=== PATIENT | male | born 1970 | race African-American/Black ===

== ENCOUNTER 2021-08-29 17:52 | Observation (INO) | payer OTHER, SELFPAY ==
[2021-08-29] MEDS ORDERED: Senokot S 8.6-50 MG TAB PO PRN (19:31)
[2021-08-29] MEDS ORDERED: Guaifenesin DM 100-10/5 ML UDCUP PO PRN (19:31)
[2021-08-29] MEDS ORDERED: Ondansetron PF 4 MG/2 ML Vial IVP PRN (19:31)
[2021-08-29] MEDS ORDERED: HYDROcodone/Acetaminophen 5/325 mg Tablet PO PRN ×2 (19:31)
[2021-08-29] MEDS ORDERED: Zolpidem Tartrate 5 MG TAB PO PRN (19:31)
[2021-08-29] MEDS ORDERED: Calcium Carbonate 500 MG ChewTAB PO PRN (19:31)
[2021-08-29] MEDS ORDERED: Acetaminophen 325 MG TAB PO PRN (19:31)
[2021-08-29] MEDS ORDERED: Nitroglycerin 0.4 MG TAB (25 Tab Bottle) SL PRN (19:31)
[2021-08-29] MEDS ORDERED: Potassium Chloride 20 MEQ TAB PO SCH (21:00)
[2021-08-29] MEDS ORDERED: Lorazepam 2 MG/ML VIAL SLOW IVP SCH (22:00)
[2021-08-29 22:15] LABS: Troponin I 0.022 ng/mL (< 0.028)
[2021-08-29] MEDS: chlordiazePOXIDE HCl 5 MG CAP PO SCH (22:52)
[2021-08-29] MEDS ORDERED: FLU VACC QS2021-22(6MOS UP)/PF 60 MCG/0.5 ML SYRINGE IM ONE (23:00)
[2021-08-29 23:51] VITALS: BMI 35.7
[2021-08-29] MEDS ORDERED: Thiamine HCl 200 MG/2 ML VIAL SLOW IVP SCH (23:59)
[2021-08-29] MEDS ORDERED: Multivitamins, Adult 10 ML, Folic Acid 1 MG in Dextrose 5 %-0.45 % NaCl 1,000 ML IV SCH (23:59)
[2021-08-30 04:30] LABS: Troponin I 0.017 ng/mL (< 0.028)
[2021-08-30 04:31] LABS: Anion Gap 13 mmol/L (10-20); BUN (Urea Nitrogen) 5 mg/dL (8.4-25.7); Calc. Creatinine Clearance 188 mL/min (70-130); Calcium 8.1 mg/dL (7.8-10.44); Carbon Dioxide 27 mmol/L (22-29); Cardiac Risk 2.8 (Less than 4.5); Chloride 104 mmol/L (98-107); Cholesterol 184 mg/dl (< 200 Desired); Glucose 147 mg/dL (70-105); HDL Cholesterol 66 mg/dL (>60 Neg Risk); LDL Cholesterol, Calculated 104 mg/dL; Magnesium 1.6 mg/dL (1.6-2.6); Potassium 3.4 mmol/L (3.5-5.1); Sodium 141 mmol/L (136-145); Triglycerides 70 mg/dL (Less than 150)
[2021-08-30] MEDS ORDERED: Potassium Chloride 20 MEQ TAB PO SCH (05:15)
[2021-08-30] MEDS: chlordiazePOXIDE HCl 5 MG CAP PO SCH ×3 (06:11→21:34)
[2021-08-30] MEDS ORDERED: Cepastat Lozenges 1 LOZ PO PRN (06:51)
[2021-08-30] MEDS ORDERED: Ondansetron ODT 4 MG TAB PO PRN (06:51)
[2021-08-30] MEDS ORDERED: GUAIFENESIN SF SOLN 200 MG/10 ML UDCUP PO PRN (06:51)
[2021-08-30] MEDS ORDERED: Loperamide HCl 2 MG CAP PO PRN (06:51)
[2021-08-30] MEDS ORDERED: Loratadine 10 MG TAB PO PRN (06:51)
[2021-08-30] MEDS ORDERED: Hydrocerin (Eucerin) Cream 120 gm Jar TOP PRN (06:51)
[2021-08-30] MEDS ORDERED: Bisacodyl 5 MG TAB PO PRN (06:51)
[2021-08-30] MEDS ORDERED: Benzonatate 100 MG CAP PO PRN (06:51)
[2021-08-30] MEDS ORDERED: hydrALAZINE 20 MG/ML VIAL SLOW IVP PRN (06:51)
[2021-08-30] MEDS: Aspirin Chewable 81 MG TAB PO SCH (08:35)
[2021-08-30] MEDS: Thiamine 100 MG TAB PO SCH (08:36)
[2021-08-30] MEDS: Hydrochlorothiazide 25 MG TAB PO SCH (08:36)
[2021-08-30] MEDS: Allopurinol 100 MG TAB PO SCH (08:36)
[2021-08-30] MEDS: Valsartan 80 MG TAB PO SCH (08:36)
[2021-08-30] MEDS: Enoxaparin Sodium 40 MG/0.4 ML SYRINGE SC SCH (08:37)
[2021-08-30] MEDS: Multivit, Therapeutic 1 TAB PO SCH (08:37)
[2021-08-30] MEDS: metFORMIN 500 MG TAB PO SCH ×2 (08:37→14:47)
[2021-08-30] MEDS: Atorvastatin Calcium 10 MG TAB PO SCH (08:37)
[2021-08-30] MEDS: Folic Acid 1 MG TAB PO SCH (08:37)
[2021-08-30] MEDS: Carvedilol 25 MG TAB PO SCH ×2 (08:37→18:18)
[2021-08-30] MEDS ORDERED: Amlodipine 5 MG TAB PO SCH (09:45)
[2021-08-30 11:32] LABS: Hemoglobin A1c 6.2 % (4.0-6.0)
[2021-08-31 06:01] LABS: Anion Gap 13 mmol/L (10-20); BUN (Urea Nitrogen) 6 mg/dL (8.4-25.7); Calc. Creatinine Clearance 186 mL/min (70-130); Calcium 8.7 mg/dL (7.8-10.44); Carbon Dioxide 28 mmol/L (22-29); Chloride 100 mmol/L (98-107); Glucose 136 mg/dL (70-105); Magnesium 1.9 mg/dL (1.6-2.6); Phosphorus 5.5 mg/dL (2.3-4.7); Potassium 3.4 mmol/L (3.5-5.1); Sodium 138 mmol/L (136-145)
[2021-08-31] MEDS: chlordiazePOXIDE HCl 5 MG CAP PO SCH (06:13)
[2021-08-31 06:15] LABS: #Eosinphils 0.1 10x3/uL (0.0-0.5); #Monocytes 0.5 10x3/uL (0.0-1.1); #Neutrophils 3.4 10x3/uL (1.5-8.4); %Basophils 0.3 % (0.0-2.0); %Eosinophils 2.2 % (0.0-6.0); %Lymphocytes 30.5 % (18.0-47.0); %Monocytes 8.4 % (0.0-10.0); %Neutrophils 58.3 % (40.0-75.0); Hemoglobin 13.1 g/dL (13.5-17.5); Mean Corpuscular HGB CONC 33.4 g/dL (32.0-36.0); Mean Corpuscular Hemoglobin 33.1 pg (27.0-33.0); Mean Platelet Volume 11.9 fl (7.4-10.4); Platelet Count 153 10x3/uL (150-450); RBC Distribution Width 11.9 % (11.5-14.5); Red Blood Cell (RBC) Count 3.96 10x6/uL (4.32-5.72); White Blood Cell (WBC) Count 5.8 10x3/uL (3.5-10.5)
[2021-08-31] MEDS ORDERED: Potassium Chloride 20 MEQ TAB PO SCH (07:30)
[2021-08-31] MEDS ORDERED: Amlodipine 5 MG TAB PO SCH (09:00)
[2021-08-31] MEDS: Hydrochlorothiazide 25 MG TAB PO SCH (09:01)
[2021-08-31] MEDS: Multivit, Therapeutic 1 TAB PO SCH (09:01)
[2021-08-31] MEDS: Allopurinol 100 MG TAB PO SCH (09:01)
[2021-08-31] MEDS: Folic Acid 1 MG TAB PO SCH (09:01)
[2021-08-31] MEDS: Atorvastatin Calcium 10 MG TAB PO SCH (09:01)
[2021-08-31] MEDS: Thiamine 100 MG TAB PO SCH (09:01)
[2021-08-31] MEDS: Aspirin Chewable 81 MG TAB PO SCH (09:01)
[2021-08-31] MEDS: Enoxaparin Sodium 40 MG/0.4 ML SYRINGE SC SCH (09:02)
[2021-08-31] MEDS: Carvedilol 25 MG TAB PO SCH (09:02)
[2021-08-31] MEDS: metFORMIN 500 MG TAB PO SCH (09:02)
[2021-08-31] MEDS: Valsartan 80 MG TAB PO SCH (09:05)
[2021-08-31 09:17] VITALS: BP 158/103; TEMP 97.4
== END 2021-08-31 11:45 | disposition home or self-care (01) ==
LOC: CSHTELE 18:30
PROVIDERS: ADMIT Family Medicine; ATTEND Internal Medicine
DX: R07.2 Precordial pain (principal); F10.139 Alcohol abuse with withdrawal, unspecified; E11.9 Type 2 diabetes mellitus without complications; M10.9 Gout, unspecified; E78.5 Hyperlipidemia, unspecified; I11.0 Hypertensive heart disease with heart failure; I50.22 Chronic systolic (congestive) heart failure; I47.2 Ventricular tachycardia; Z87.891 Personal history of nicotine dependence; Z91.14 Patient's other noncompliance with medication regimen; E87.6 Hypokalemia; Z82.49 Family history of ischemic heart disease and other diseases of the circulatory system; Z95.818 Presence of other cardiac implants and grafts; Z79.899 Other long term (current) drug therapy; Z79.82 Long term (current) use of aspirin; Z88.8 Allergy status to other drugs, medicaments and biological substances
CPT/HCPCS: 36415; 80048; 80061; 83036; 83735; 84100; 84443; 84484; 85025; 85379; 93005; 93010; 93306; 96372; 96374; 96375; G0378; J1650; J2060; J3411; J7042

== ENCOUNTER 2025-06-29 17:23 | Inpatient (IN) | payer OTHER ==
[2025-06-29 18:11] LABS: #Basophils Less than 0.03 10x3/uL (0.0-0.2); #Eosinophils 0.07 10x3/uL (0.0-0.5); #Monocytes 0.66 10x3/uL (0.0-1.1); #Neutrophils 5.54 10x3/uL (1.5-8.4); %Basophils 0.3 % (0.0-2.0); %Eosinophils 0.9 % (0.0-6.0); %Lymphocytes 17.0 % (18.0-47.0); %Monocytes 8.7 % (0.0-10.0); %Neutrophils 72.8 % (40.0-75.0); Hematocrit 39.3 % (38.8-50.0); Hemoglobin 13.4 g/dL (13.5-17.5); Mean Corpuscular Hemoglobin 34.3 pg (27.0-33.0); Mean Corpuscular Volume 100.5 fL (81.2-95.1); Red Blood Cell (RBC) Count 3.91 10x6/uL (4.32-5.72); White Blood Cell (WBC) Count 7.60 10x3/uL (3.5-10.5)
[2025-06-29 18:19] LABS: ALT (SGPT) 64 U/L (Less than 45); AST (SGOT) 112 U/L (11-34); Albumin 3.5 g/dL (3.1-4.5); Alkaline Phosphatase 96 U/L (40-110); Anion Gap 15 mmol/L (10-20); BUN (Urea Nitrogen) 7 mg/dL (8.4-25.7); Bilirubin, Total 2.2 mg/dL (0.3-1.2); Calc. Creatinine Clearance 0 mL/min (70-130); Calcium 9.1 mg/dL (7.8-10.44); Carbon Dioxide 27 mmol/L (22-29); Chloride 97 mmol/L (98-107); Globulin 3.6 g/dL (2.4-3.5); Glucose 199 mg/dL (70-105); Potassium 2.9 mmol/L (3.5-5.1); Sodium 136 mmol/L (136-145)
[2025-06-29 18:20] LABS: Troponin I 0.027 ng/mL (< 0.028)
[2025-06-29 18:35] LABS: Magnesium 1.3 mg/dL (1.6-2.6)
[2025-06-29 18:58] LABS: Platelet Adequacy Comment Appears Decreased
[2025-06-29 18:59] LABS: Platelet Count 114 10x3/uL (130-400)
[2025-06-29] MEDS ORDERED: Magnesium 2 GM/50 ML BAG (IN WATER) ONE (19:07)
[2025-06-29] MEDS ORDERED: Potassium Chloride 20 MEQ (100 mL) BAG ONE (19:08)
[2025-06-29] MEDS ORDERED: Ondansetron PF 4 MG/2 ML Vial IVP PRN (20:05)
[2025-06-29] MEDS ORDERED: Electrolyte Replacement Protocol 1 EACH FS PRN (20:15)
[2025-06-29] MEDS ORDERED: Acetaminophen 500 MG TAB PO PRN (20:38)
[2025-06-29 21:57] VITALS: BMI 31.5
[2025-06-30] MEDS: Magnesium 2 GM/50 ML(in water) 2 GM in Premix 1 BAG IVPB SCH ×2 (01:19→09:09)
[2025-06-30 04:48] LABS: #Basophils Less than 0.03 10x3/uL (0.0-0.2); #Eosinophils 0.06 10x3/uL (0.0-0.5); #Monocytes 0.68 10x3/uL (0.0-1.1); #Neutrophils 3.45 10x3/uL (1.5-8.4); %Basophils 0.3 % (0.0-2.0); %Eosinophils 1.0 % (0.0-6.0); %Lymphocytes 28.7 % (18.0-47.0); %Monocytes 11.5 % (0.0-10.0); %Neutrophils 58.3 % (40.0-75.0); Hematocrit 35.4 % (38.8-50.0); Hemoglobin 12.2 g/dL (13.5-17.5); Mean Corpuscular Hemoglobin 34.4 pg (27.0-33.0); Mean Corpuscular Volume 99.7 fL (81.2-95.1); Platelet Count 94 10x3/uL (150-450); Red Blood Cell (RBC) Count 3.55 10x6/uL (4.32-5.72); White Blood Cell (WBC) Count 5.92 10x3/uL (3.5-10.5)
[2025-06-30 05:00] LABS: INR-International Normal Ratio 1.0; PTT 26.4 sec (22.0-33.0); Prothrombin Time 11.3 sec (9.5-12.1)
[2025-06-30 05:13] LABS: ALT (SGPT) 57 U/L (Less than 45); AST (SGOT) 105 U/L (11-34); Albumin 3.3 g/dL (3.1-4.5); Alkaline Phosphatase 86 U/L (40-110); Anion Gap 15 mmol/L (10-20); BUN (Urea Nitrogen) 7 mg/dL (8.4-25.7); Bilirubin, Total 1.9 mg/dL (0.3-1.2); Calc. Creatinine Clearance 188 mL/min (70-130); Calcium 8.8 mg/dL (7.8-10.44); Carbon Dioxide 24 mmol/L (22-29); Chloride 101 mmol/L (98-107); Globulin 3.6 g/dL (2.4-3.5); Glucose 121 mg/dL (70-105); Magnesium 2.0 mg/dL (1.6-2.6); Potassium 3.0 mmol/L (3.5-5.1); Sodium 137 mmol/L (136-145)
[2025-06-30] MEDS: FLU (Fluarix Triv) 25-26 (6MOS UP)/PF 45 MCG/0.5 ML Syringe IM ONE (08:30)
[2025-06-30] MEDS: Allopurinol 100 MG TAB PO SCH (09:10)
[2025-06-30] MEDS: Multivit, Therapeutic 1 TAB PO SCH (09:11)
[2025-06-30] MEDS: Folic Acid 1 MG TAB PO SCH (09:12)
[2025-06-30] MEDS: Aspirin 81 mg Enteric Coated Tablet PO SCH (09:12)
[2025-06-30 13:32] LABS: Potassium 3.2 mmol/L (3.5-5.1)
[2025-06-30] MEDS: Carvedilol 6.25 MG TAB PO SCH (17:10)
[2025-06-30] MEDS ORDERED: CEFPODOXIME PO SCH (21:00)
[2025-07-01 05:55] LABS: Platelet Count 113 10x3/uL (150-450)
[2025-07-01 05:56] LABS: #Basophils Less than 0.03 10x3/uL (0.0-0.2); #Eosinophils 0.09 10x3/uL (0.0-0.5); #Monocytes 0.72 10x3/uL (0.0-1.1); #Neutrophils 2.82 10x3/uL (1.5-8.4); %Basophils 0.4 % (0.0-2.0); %Eosinophils 1.6 % (0.0-6.0); %Lymphocytes 34.6 % (18.0-47.0); %Monocytes 12.8 % (0.0-10.0); %Neutrophils 50.2 % (40.0-75.0); Hematocrit 34.2 % (38.8-50.0); Hemoglobin 11.4 g/dL (13.5-17.5); Mean Corpuscular Hemoglobin 34.0 pg (27.0-33.0); Mean Corpuscular Volume 102.1 fL (81.2-95.1); Red Blood Cell (RBC) Count 3.35 10x6/uL (4.32-5.72); White Blood Cell (WBC) Count 5.61 10x3/uL (3.5-10.5)
[2025-07-01] MEDS: CEFPODOXIME PO SCH (05:58)
[2025-07-01 06:03] LABS: ALT (SGPT) 80 U/L (Less than 45); AST (SGOT) 157 U/L (11-34); Albumin 3.2 g/dL (3.1-4.5); Alkaline Phosphatase 90 U/L (40-110); Anion Gap 12 mmol/L (10-20); BUN (Urea Nitrogen) 8 mg/dL (8.4-25.7); Bilirubin, Total 1.3 mg/dL (0.3-1.2); Calc. Creatinine Clearance 182 mL/min (70-130); Calcium 8.9 mg/dL (7.8-10.44); Carbon Dioxide 27 mmol/L (22-29); Chloride 103 mmol/L (98-107); Globulin 3.5 g/dL (2.4-3.5); Glucose 116 mg/dL (70-105); Magnesium 1.8 mg/dL (1.6-2.6); Potassium 3.5 mmol/L (3.5-5.1); Sodium 138 mmol/L (136-145)
[2025-07-01] MEDS: Folic Acid/Vit B Comp W-C PO SCH (09:14)
[2025-07-01] MEDS: Magnesium 2 GM/50 ML(in water) 2 GM in Premix 1 BAG IVPB SCH (09:15)
[2025-07-01 12:56] VITALS: BP 125/83; TEMP 98.2
[2025-07-01] MEDS ORDERED: Carvedilol 12.5 MG TAB PO SCH (17:00)
[2025-07-02] MEDS ORDERED: Thiamine 100 MG TAB PO SCH (21:00)
== END 2025-07-01 16:00 | disposition home or self-care (01) | DRG 312 ==
LOC: CSHERS 17:23 → CSHTELE 20:05 → OBSVTOIN 07-01 08:12
PROVIDERS: ADMIT Internal Medicine; ATTEND Family Medicine
DX: I95.1 Orthostatic hypotension (principal); N39.0 Urinary tract infection, site not specified; I50.32 Chronic diastolic (congestive) heart failure; E78.5 Hyperlipidemia, unspecified; M10.9 Gout, unspecified; I11.0 Hypertensive heart disease with heart failure; E11.9 Type 2 diabetes mellitus without complications; F10.10 Alcohol abuse, uncomplicated; D69.6 Thrombocytopenia, unspecified; E87.6 Hypokalemia; R94.5 Abnormal results of liver function studies; E83.42 Hypomagnesemia; Z98.890 Other specified postprocedural states; Z95.828 Presence of other vascular implants and grafts; Z98.61 Coronary angioplasty status; Z88.8 Allergy status to other drugs, medicaments and biological substances; Z79.899 Other long term (current) drug therapy
CPT/HCPCS: 36415; 36416; 70450; 71045; 80053; 80307; 82607; 83735; 84484; 85025; 85379; 85610; 85730; 93005; 93306; 94760; 96361; 96365; 96366; 96368; 96375; 96376; G0378; J3411; J3475; J3480; J7030